=== PATIENT | male | born 1980 | race Caucasian/White ===

== ENCOUNTER 2018-05-25 10:40 | Emergency (ER) | payer BC ==
[2018-05-25 10:57] VITALS: BP 142/85
--- NOTE | 2018-05-25 11:04 | UC ---
Skin Complaint HPI - HPI Summary HPI Summary: tick bite right side of neck x 2 days ago tick was removed by the pt. no fever, no chills, no joint pain , no rash - History of Current Complaint Chief Complaint: UCSkin Time Seen by Provider: 05/25/18 10:54 Stated Complaint: SKIN COMPLAINT NECK Hx Obtained From: Patient Onset/Duration: Sudden Onset, Lasting Days - 2, Resolved Timing: Constant Onset Severity: Mild Current Severity: Mild Pain Intensity: 0 Location: Discrete - right side of neck Aggravating Factor(s): Nothing Alleviating Factor(s): Nothing Associated Signs & Symptoms: Positive: Negative. Negative: Weakness, Fever, Chills, Rash Related History: Insect Bite/Sting - tick bite - Allergy/Home Medications Allergies/Adverse Reactions: Allergies Allergy/AdvReac Type Severity Reaction Status Date / Time No Known Allergies Allergy Verified 05/25/18 10:54 Home Medications: Home Medications Amoxicillin PO (*) [Amoxicillin 875 MG (*)] 875 mg PO BID 05/25/18 [History Confirmed 05/25/18] raNITIdine HCl [Ranitidine HCl] 150 mg PO DAILY 05/25/18 [History Confirmed ] Review of Systems Constitutional: Negative Skin: Negative Eyes: Negative ENT: Negative Respiratory: Negative Cardiovascular: Negative Gastrointestinal: Negative Musculoskeletal: Negative Is Patient Immunocompromised?: No All Other Systems Reviewed And Are Negative: Yes PMH/Surg Hx/FS Hx/Imm Hx Previously Healthy: Yes - Surgical History Surgical History: None - Family History Known Family History: Positive: Unknown Negative: Diabetes - Social History Alcohol Use: Daily Alcohol Amount: few drinks a night Substance Use Type: None Smoking Status (MU): Never Smoked Tobacco Have You Smoked in the Last Year: Yes - only marijuana - Immunization History Most Recent Influenza Vaccination: no Physical Exam Triage Information Reviewed: Yes Appearance: Well-Appearing, No Pain Distress, Well-Nourished Vital Signs: Initial Vital Signs Temp 98.0 F 05/25/18 10:51 Pulse 98 05/25/18 10:51 Resp 14 05/25/18 10:51 BP 142/85 05/25/18 10:51 Pulse Ox 95 05/25/18 10:51 Vital Signs Reviewed: Yes Eye Exam: Normal Eyes: Positive: Conjunctiva Clear ENT: Positive: Normal ENT inspection, Hearing grossly normal, Pharynx normal Neck: Positive: Supple, Nontender, No Lymphadenopathy Respiratory: Positive: Chest non-tender, Lungs clear, Normal breath sounds Cardiovascular: Positive: RRR, No Murmur, Pulses Normal Skin: Positive: Other - tick site right anterior neck , tick was removed by the pt. Course/Dx - Diagnoses Provider Diagnoses: tick bite neck Discharge - Sign-Out/Discharge Documenting (check all that apply): Patient Departure All imaging exams completed and their final reports reviewed: No Studies - Discharge Plan Condition: Stable Disposition: HOME Patient Education Materials: Tick Bite (ED) Referrals: Caitlyn Petersen PA [Primary Care Provider] - If Needed - Billing Disposition and Condition Condition: STABLE Disposition: Home
== END 2018-05-25 11:06 | disposition home or self-care (01) ==
LOC: UCCORT 10:40
DX: S10.96XA Insect bite of unspecified part of neck, initial encounter (principal); W57.XXXA Bitten or stung by nonvenomous insect and other nonvenomous arthropods, initial encounter; Y92.9 Unspecified place or not applicable
CPT/HCPCS: 99211; G0463

== ENCOUNTER 2019-06-04 13:59 | Emergency (ER) | payer BC ==
[2019-06-04 15:03] VITALS: BP 147/89
[2019-06-04] MEDS ORDERED: Lidocaine 2% w EPI 1:100,000* 20 ML MDV VIAL INJ ONE (15:26)
[2019-06-04] MEDS ORDERED: Lidocaine 1% w EPI 1:200,000* SDV 30 ML VIAL INJ ONE (15:35)
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
[2019-06-04] MEDS ORDERED: Tetan/Diph/Pertus SYR(Tdap)* 0.5 ML SYR(BOOSTRIX) use SYR contains LATEX IM ONE (16:22)
--- NOTE | 2019-06-05 09:27 | UC ---
- Progress Note Progress Note: Final radiologist reading of right thumb x-ray from June 04, 2019 comes back as positive for fracture. Provider interpretation same date is same and the patient's going to be following up with the orthopedic hand specialist therefore there is no discrepancy. Course/Dx - Diagnoses Provider Diagnoses: Laceration of lip without complication, Displaced fracture of distal phalanx of finger of right hand Discharge ED - Sign-Out/Discharge Documenting (check all that apply): Patient Departure All imaging exams completed and their final reports reviewed: Yes - Discharge Plan Condition: Stable Disposition: HOME Patient Education Materials: Finger Fracture (ED), Care For Your Absorbable Stitches (ED) Referrals: Ayanna Merritt MD [Primary Care Provider] - Anna Harry MD [Medical Doctor] - 2 Days (Slightly displaced right 1st distal phalynx fracture.) - Billing Disposition and Condition Condition: STABLE Disposition: Home
== END 2019-06-04 16:35 | disposition home or self-care (01) ==
LOC: UCCORT 13:59
DX: S62.521A Displaced fracture of distal phalanx of right thumb, initial encounter for closed fracture (principal); S01.511A Laceration without foreign body of lip, initial encounter; V86.99XA Unspecified occupant of other special all-terrain or other off-road motor vehicle injured in nontraffic accident, initial encounter; Y92.9 Unspecified place or not applicable; Z23 Encounter for immunization
CPT/HCPCS: 12013; 90715; 96372; 99211; G0463; J2001